=== PATIENT | male | born 1985 ===

== ENCOUNTER 2019-09-14 20:29 | Emergency (ER) | payer SELFPAY ==
[2019-09-14 21:41] VITALS: BP 136/85
[2019-09-14] MEDS ORDERED: TETANUS,DIPH,PERTUSS(ACELL) VACCINE 0.5 ML SYRINGE IM ONE (21:58)
--- NOTE | 2019-09-14 21:58 | Emergency Department Report ---
Blank Doc - Documentation Documentation: 33-year-old male that presents with right foot abrasion. Denies being UTD with tatanus. This initial assessment/diagnostic orders/clinical plan/treatment(s) is/are subject to change based on patient's health status, clinical progression and re- assessment by fellow clinical providers in the ED. Further treatment and workup at subsequent clinical providers discretion. Patient/guardians urged not to elope from the ED as their condition may be serious if not clinically assessed and managed. Initial orders include: 1- Patient sent to [facility] for further evaluation and treatment 2- tetanus shoot needed
[2019-09-15] MEDS ORDERED: TETANUS,DIPH,PERTUSS(ACELL) VACCINE 0.5 ML SYRINGE IM ONE (01:15)
== END 2019-09-15 02:30 | disposition left against medical advice (07) ==
LOC: ED 20:29
DX: M25.571 Pain in right ankle and joints of right foot (principal); Z53.21 Procedure and treatment not carried out due to patient leaving prior to being seen by health care provider
CPT/HCPCS: 90715